=== PATIENT | female | born 1960 | race Asian ===

== ENCOUNTER 2018-05-31 18:56 | Emergency (ER) | payer OTHER ==
[2018-05-31 19:36] VITALS: BP 129/73; PULSE 82; TEMP 98.2; BMI 26.4
--- NOTE | 2018-05-31 19:38 | PDOC ---
Rapid Medical Evaluation Chief Complaint: Head/Neck problem Time Seen by Provider: 05/31/18 19:36 Medical Evaluation: Allergies Allergy/AdvReac Type Severity Reaction Status Date / Time No Known Allergies Allergy Verified 05/31/18 19:35 Vital Signs Temp Pulse Resp BP Pulse Ox 98.2 F 82 18 129/73 98 05/31/18 19:33 05/31/18 19:33 05/31/18 19:33 05/31/18 19:33 05/31/18 19:33 05/31/18 19:36 Pt c/o: fell from standing ht, no loc, no anticoagulation tx, no other complaints except parietal headache Pt on brief exam: vss, perrl, no open lac, no hematoma pt ordered for: none pt to proceed to the ED Discharge Disposition - Diagnosis Head injury - Referrals Referrals: Charly Graf MD [Primary Care Provider] - - Patient Instructions - Post Discharge Activity
--- NOTE | 2018-05-31 20:20 | PDOC ---
History of Present Illness - General Chief Complaint: Head/Neck problem Stated Complaint: FALL Time Seen by Provider: 05/31/18 19:36 - History of Present Illness Initial Comments: 05/31/18 20:19 57-year-old female with a past medical history significant for dyslipidemia presents for evaluation of headache after falling and hitting her head. She states she had a mechanical fall. The right side of her head by her headache now is at the middle of her head. Her headache is away from the site of trauma. She has no visual changes postinjury nausea vomiting or dizziness Past History - Past Medical History Allergies/Adverse Reactions: Allergies Allergy/AdvReac Type Severity Reaction Status Date / Time No Known Allergies Allergy Verified 05/31/18 19:35 Home Medications: Ambulatory Orders Rosuvastatin [Crestor -] 10 mg PO DAILY 05/31/18 COPD: No Diabetes: Yes Hypercholesterolemia: Yes - Suicide/Smoking/Psychosocial Hx Smoking History: Never smoked Review of Systems - Review of Systems HEENTM: No: Blurred Vision ABD/GI: No: Nausea, Vomiting Neurological: Yes: Headache. No: Ataxia, Dizziness *Physical Exam - Vital Signs Last Vital Signs Temp Pulse Resp BP Pulse Ox 98.2 F 82 18 129/73 98 05/31/18 19:33 05/31/18 19:33 05/31/18 19:33 05/31/18 19:33 05/31/18 19:33 - Physical Exam Comments: 05/31/18 20:20 HEAD: NC/AT EYES: Conjuntiva clear Ears: Canals and TM's normal NOSE: No d/c THROAT: Moist mucous membrances, oral pharanx clear, uvula midline NECK: Supple without adenopathy CARDIAC: S1 S2 LUNGS: CTA Full and Equal breath sounds ABDOMEN: Soft NT ND MS: Full ROM in all joints without edema NEUROLOGIC: No gross sensory or motor deficits, NVID SKIN: Normal color and temperature no lesions or rashes ED Treatment Course - RADIOLOGY Radiology Studies Ordered: Category Date Time Status HEAD CT WITHOUT CONTRAST [CT] Stat CT Scan 05/31/18 20:19 Ordered *DC/Admit/Observation/Transfer Diagnosis at time of Disposition: Head injury - Discharge Dispostion Disposition: HOME Condition at time of disposition: Stable Decision to Admit order: No - Referrals Referrals: Charly Graf MD [Primary Care Provider] - - Patient Instructions Printed Discharge Instructions: DI for Closed Head Injury Additional Instructions: He may take Tylenol for pain. Return to the emergency room should symptoms worsen or go unresolved and follow-up your primary care physician in one to 2 days for further evaluation and treatment options CAT scan today was normal - Post Discharge Activity
== END 2018-05-31 20:47 | disposition home or self-care (01) ==
LOC: JERFT 18:56
DX: S09.8XXA Other specified injuries of head, initial encounter (principal); W18.39XA Other fall on same level, initial encounter; Y93.89 Activity, other specified; Y92.89 Other specified places as the place of occurrence of the external cause; Y99.8 Other external cause status; I10 Essential (primary) hypertension; E11.9 Type 2 diabetes mellitus without complications
CPT/HCPCS: 70450-TC; 99281-25